=== PATIENT | female | born 1990 | race Caucasian/White ===

== ENCOUNTER 2016-12-20 11:03 | Outpatient (CLI) | payer BC ==
[~2016-12-20] VITALS: Ht 175.3 cm; Wt 71.4 kg
[2016-12-20 11:52] VITALS: BP 122/68
[2016-12-20] MEDS ORDERED: PREN1TAB25 PO (11:59)
[2016-12-22] MEDS ORDERED: IBUP-1222 PO (09:37)
[2016-12-22] MEDS ORDERED: OXYC-302 PO (09:38)
== END 2016-12-20 12:10 | disposition home or self-care (01) ==
LOC: LDOP 11:03
PROVIDERS: ATTEND Obstetrics & Gynecology Gynecology
DX: O36.8130 Decreased fetal movements, third trimester, not applicable or unspecified (principal); Z3A.39 39 weeks gestation of pregnancy
CPT/HCPCS: 59025; 99201; G0463